=== PATIENT | female | born 1960 | race Caucasian/White ===

== ENCOUNTER 2018-05-30 08:48 | Emergency (ER) | END 2018-05-30 11:00 | disposition home or self-care (01) ==

== ENCOUNTER 2018-06-27 09:34 | Emergency (ER) | END 2018-06-27 12:26 | disposition home or self-care (01) ==

== ENCOUNTER 2018-08-01 08:19 | Emergency (ER) | payer OTHER ==
[~2018-08-01] VITALS: Wt 69.8 kg
[~2018-08-01 08:19] MED LIST: CEPH-443 PO; FERR134T PO; LISI10TA2 PO; PHEN-538 PO; SIMV20TA2 PO
[2018-08-01] MEDS ORDERED: LISI-471 PO (09:21)
[2018-08-01] MEDS ORDERED: OMEG-135 PO (09:21)
[2018-08-01 09:35] VITALS: BP 160/90; PULSE 88; RESP 17
[2018-08-01] MEDS ORDERED: CIPR500T4 PO (10:23)
--- NOTE | 2018-08-01 11:41 | ERD ---
ER Documentation Chief Complaint Chief Complaint LEFT FLANK PAIN WITH DYSURIA X 1 WEEK HPI Patient is a 58-year-old female with hypertension and UTI who presents with left-sided flank pain. She also has frequent urination. The symptoms started last week. This is her third visit to the ER over the past few months for the same. She says "I think it is a UTI". She has burning with urination as well. She denies fevers. She has had antibiotics for this in the past and the last treatment in June was with Keflex. Upon review of old medical record she has multiple visits for various complaints. ROS All systems reviewed and are negative except as per history of present illness. Medications Home Meds Active Scripts Ciprofloxacin Hcl* (Ciprofloxacin Hcl*) 500 Mg Tablet, 500 MG PO BID for 10 Days, TAB Prov:NIKKO RAMOS MD 08/01/18 Reported Medications Deposit-3 Fatty Acids/Fish Oil (Fish Oil 1,000 mg Capsule) 1 Each Capsule, 2 EA PO BID, CAP 08/01/18 Lisinopril* (Lisinopril*) 20 Mg Tablet, 20 MG PO BID, #30 TAB 08/01/18 Discontinued Reported Medications Simvastatin (Simvastatin) 20 Mg Tablet, 20 MG PO HS, TAB 01/23/14 Ferrous Sulfate (Iron) 134 Mg Tablet, 134 MG PO DAILY 01/23/14 Lisinopril* (Lisinopril*) 10 Mg Tablet, 10 MG PO DAILY, TAB 01/23/14 Discontinued Scripts Phenazopyridine Hcl* (Pyridium*) 200 Mg Tab, 200 MG PO TID PRN for URINARY PAIN, #6 TAB Prov:SUSANNAH STUART MD 06/27/18 Cephalexin* (Keflex*) 500 Mg Capsule, 500 MG PO QID for 5 Days, CAP Prov:SUSANNAH STUART MD 06/27/18 Phenazopyridine Hcl* (Pyridium*) 200 Mg Tab, 200 MG PO TID PRN for URINARY PAIN, #5 TAB Prov:ALEJANDRA CALI PA-C 05/30/18 Cephalexin* (Keflex*) 500 Mg Capsule, 500 MG PO BID for 10 Days, CAP Prov:ALEJANDRA CALI PA-C 05/30/18 Allergies Allergies: Coded Allergies: ibuprofen (Verified Allergy, Severe, SWELLING REDNESS, 08/01/18) PER PT Penicillins (Verified Allergy, Unknown, 05/30/18) PMhx/Soc History of Surgery: Yes (tubal ligation) Anesthesia Reaction: No Hx Neurological Disorder: No Hx Respiratory Disorders: No Hx Cardiac Disorders: Yes (HTN) Hx Psychiatric Problems: No Hx Miscellaneous Medical Probl: No Hx Alcohol Use: No Hx Substance Use: No Hx Tobacco Use: No Smoking Status: Never smoker FmHx Family History: No diabetes Physical Exam Vitals Vital Signs Date Temp Pulse Resp B/P (MAP) Pulse Ox O2 O2 Flow FiO2 Time Delivery Rate 08/01/18 88 17 160/90 100 Room Air 09:35 (113) 08/01/18 97.9 89 16 174/77 100 08:21 (109) Physical Exam Const: No acute distress Head: Atraumatic Eyes: Normal Conjunctiva ENT: Normal External Ears, Nose and Mouth. Neck: Full range of motion. No meningismus. Resp: Clear to auscultation bilaterally Cardio: Regular rate and rhythm, no murmurs Abd: Soft, non tender, non distended. Normal bowel sounds Skin: No petechiae or rashes Back: No midline or flank tenderness Ext: No cyanosis, or edema Neur: Awake and alert Psych: Normal Mood and Affect Results 24 hrs Laboratory Tests Test 08/01/18 09:27 Bedside Urine pH (LAB) 6.0 Bedside Urine Protein (LAB) 1+ Bedside Urine Glucose (UA) Negative Bedside Urine Ketones (LAB) Negative Bedside Urine Blood 2+ Bedside Urine Nitrite (LAB) Negative Bedside Urine Leukocyte Esterase (L Trace Procedures/MDM Urine dip positive for infection. Patient is a 58-year-old female who presents with symptoms consistent with UTI. I doubt pyelonephritis at this time. I believe outpatient management is appropriate. The patient will be treated with Cipro for a 10-day course. She will need to follow-up with her primary doctor within 1 week for reevaluation. She can return for any worsening symptoms. I doubt sepsis. Departure Diagnosis: Primary Impression: UTI (lower urinary tract infection) Condition: Fair Patient Instructions: Cystitis Referrals: Your doctor Additional Instructions: Call your primary care doctor TOMORROW for an appointment during the next 1 WEEK.Tell the secretary office clerk that you were referred from this facility.See the doctor sooner or return here if your condition worsens before your appointment time. NIKKO RAMOS MD Aug 01, 2018 11:41
== END 2018-08-01 10:37 | disposition home or self-care (01) ==
LOC: E/R 08:19
DX: N39.0 Urinary tract infection, site not specified (principal); I10 Essential (primary) hypertension
CPT/HCPCS: 81003; Z7502; 99283